=== PATIENT | female | born 1955 | race Caucasian/White ===

== ENCOUNTER 2019-08-13 10:47 | Outpatient (CLI) | payer MEDICARE, MEDICAID, SELFPAY ==
--- NOTE | 2019-08-13 | US_ITS ---
WS: [id number] ULTRASOUND THYROID TECHNIQUE: Ultrasound of the thyroid. CLINICAL INFORMATION: THYROID NODULE COMPARISON: None. FINDINGS: Thyroid: Right and left thyroid lobes are normal in size and echotexture. No thyroid nodules are pres ent. Right thyroid lobe: 2.2 cm x 0.8 cm x 0.8 cm Left thyroid lobe: 2.0 cm x 0.7 cm x 0.5 cm. Isthmus: 1.3 mm. Cervical lymphadenopathy: None. US/US thyroid [id number] IMPRESSION: Normal thyroid ultrasound examination.
== END 2019-08-13 10:48 | disposition home or self-care (01) ==
LOC: RADOUTREAD 10:50
PROVIDERS: Family Provider Internal Medicine; Visit Provider Internal Medicine
DX: E04.1 Nontoxic single thyroid nodule (principal)

== ENCOUNTER 2019-10-06 07:45 | Outpatient (CLI) | payer MEDICARE, MEDICAID, SELFPAY ==
--- NOTE | 2019-10-06 07:51 | CT_ITS ---
WS: [id number] CT LUNG CANCER SCREENING DLP: 57.43 mGy.cm DIvol: 1.52 mGy CLINICAL INFORMATION SCREENING VISIT: Baseline COMPARISON: Neck CT 04/12/2015 FINDINGS Diagnostic quality: Satisfactory Comments: None. Lung Nodules: Benign calcified nodule in the RIGHT lower lobe measures 7 mm. No suspicious nodules ar e identified. Lungs: Biapical pleural thickening and increased soft tissue is identified, RIGHT greater than LEFT. These changes were also present on the neck CT of 04/12/2015. Lungs are hyperinflated. Mild RIGHT midd le lobe bronchiectasis with bronchial wall thickening. Heart: Mild cardiomegaly. Small amount of pericardial fluid along the posterior pericardial recess. C alcification noted in the LEFT anterior descending coronary artery. Other findings: Moderate atherosclerosis thoracic aorta. No adenopathy. Prior cholecystectomy. CT/CT lung screening [id number] IMPRESSION: LUNG-RADS: 1S-Negative with Significant Findings FOLLOW UP: 12 Month: Continue annual screening with LDCT 1. Benign granuloma RIGHT lower lobe. 2. RIGHT middle lobe bronchiectasis. 3. Stable biapical pleural thickening and fibrosis. 4. Chronic emphysema. 5. Mild atherosclerosis coronary arteries. 6. Prior cholecystectomy.
== END 2019-10-06 07:46 | disposition home or self-care (01) ==
LOC: CT 07:46
PROVIDERS: Family Provider Internal Medicine; PCP Internal Medicine; Visit Provider Internal Medicine
DX: Z12.2 Encounter for screening for malignant neoplasm of respiratory organs (principal); F17.210 Nicotine dependence, cigarettes, uncomplicated; J84.10 Pulmonary fibrosis, unspecified; J47.9 Bronchiectasis, uncomplicated; J43.9 Emphysema, unspecified; I25.10 Atherosclerotic heart disease of native coronary artery without angina pectoris; Z90.49 Acquired absence of other specified parts of digestive tract
CPT/HCPCS: G0297

== ENCOUNTER → 2020-02-26 14:41 | Outpatient (BNVA) | payer MEDICARE, MEDICAID, SELFPAY | PROVIDERS: Family Provider Internal Medicine; PCP Internal Medicine; Visit Provider Nurse Practitioner Women's Health | DX: R30.0 Dysuria; R30.9 Painful micturition, unspecified | CPT/HCPCS: 80053; 81000; 87077; 87086; 87186 ==

== ENCOUNTER 2021-07-19 15:38 | Outpatient (CLI) | payer MEDICARE, MEDICAID, SELFPAY ==
--- NOTE | 2021-07-19 | CT_ITS ---
WS: [id number] CT CHEST TECHNIQUE: Noncontrast CT of the chest with coronal and sagittal reformatted images. CLINICAL INFORMATION: CHEST PAIN COMPARISON: CT October 06, 2019 DLP: [address] scans at [facility] use at least one of these dose optimization techniques: automated e xposure control; mA and/or kV adjustment per patient size (includes targeted exams where dose is matc hed to clinical indication); or iterative reconstruction. FINDINGS: Moderate chronic emphysematous changes. No acute pulmonary infiltrates. Biapical pleural thickening. Stable right middle lobe bronchiectasis. Fibrosis with micronodular nodularity in the anterior upper lobe unchanged. Calcified granuloma right lower lobe. No focal pneumonia or pleural fluid. Normal caliber ascending and descending thoracic aorta. Mild aortic calcification. No mediastinal or hilar lymphadenopathy. No axillary lymphadenopathy. Adrenal glands are normal. Cholecystectomy clips. Normal caliber descending thoracic aorta. CT/CT chest wo con [id number] IMPRESSION: 1. No abnormalities in the area of the right clavicle. Visualized right clavic le appears normal. 2. Moderate chronic emphysematous changes. No acute pulmonary infiltrates. 3. Stable biapical fibrosis.Stable right middle lobe bronchiectasis. Fibrosis with micronodular nodularity in the anterior upper lobe unchanged. 4. No mediastinal or hilar lymphadenopathy. 5. Cholecystectomy clips.
== END 2021-07-19 15:39 | disposition home or self-care (01) ==
PROVIDERS: PCP Internal Medicine; Visit Provider Internal Medicine
DX: R07.9 Chest pain, unspecified (principal); Z90.49 Acquired absence of other specified parts of digestive tract; J47.9 Bronchiectasis, uncomplicated
CPT/HCPCS: 71250

== ENCOUNTER → 2021-11-02 16:13 | Outpatient (BNVA) | payer MEDICARE, MEDICAID, SELFPAY | PROVIDERS: PCP Internal Medicine; Visit Provider Nurse Practitioner Women's Health | DX: R30.0 Dysuria (principal) | CPT/HCPCS: 84315; 87077; 87086; 87184 ==

== ENCOUNTER 2021-11-14 13:45 | Outpatient (CLI) | payer MEDICARE, MEDICAID, SELFPAY ==
--- NOTE | 2021-11-14 14:08 | MM_ITS ---
WS: [id number] BILATERAL 3D TOMOSYNTHESIS DIGITAL DIAGNOSTIC MAMMOGRAPHY WITH CAD CLINICAL INFORMATION: N64.4 - Mastodynia HISTORY: RIGHT breast pain COMPARISON: 6 ,019 TECHNIQUE: Bilateral CC, MLO, and ML views. FINDINGS: The breasts are composed of heterogeneous fibroglandular density, which can limit the detection of sm all underlying mass lesions. A few incidental punctate calcifications. Ultrasound RIGHT breast is pen ding. ULTRASOUND BREAST RIGHT TECHNIQUE: Ultrasound right breast focused area of concern. CLINICAL INFORMATION: N64.4 - Mastodynia COMPARISON: None. FINDINGS: Ultrasound RIGHT breast at the 12:00 position 6 cm from the nipple. No underlying cystic or solid les ions. Dense parenchymal tissue. Additional ultrasound RIGHT axilla in the area of patient concern. No rmal axilla. No suspicious findings. MM/[place] [id number] IMPRESSION: BI-RADS: 2-Benign FOLLOW UP: 1 Year Follow-up Recommend return to annual screening mammography.
== END 2021-11-14 13:46 | disposition home or self-care (01) ==
LOC: RAD 13:49
PROVIDERS: PCP Internal Medicine; Visit Provider Nurse Practitioner Women's Health
DX: N64.4 Mastodynia (principal); R92.2 Inconclusive mammogram
CPT/HCPCS: 76642; 77062

== ENCOUNTER → 2022-07-17 09:50 | Outpatient (BNVA) | payer MEDICARE, MEDICAID, SELFPAY | PROVIDERS: PCP Internal Medicine; Visit Provider Nurse Practitioner Women's Health | DX: N89.8 Other specified noninflammatory disorders of vagina (principal); R30.0 Dysuria | CPT/HCPCS: 81000; 87086; 87184; 87481; 87491; 87512; 87591; 87661; 87798; 87799 ==

== ENCOUNTER → 2022-11-06 16:12 | Outpatient (BNVA) | payer MEDICARE, MEDICAID, SELFPAY | PROVIDERS: PCP Internal Medicine; Visit Provider Nurse Practitioner Women's Health | DX: R39.89 Other symptoms and signs involving the genitourinary system (principal) | CPT/HCPCS: 81000; 87086 ==

== ENCOUNTER 2022-11-21 10:44 | Outpatient (CLI) | payer MEDICARE, MEDICAID, SELFPAY ==
--- NOTE | 2022-11-21 10:57 | MM_ITS ---
WS: [id number] BILATERAL SCREENING DIGITAL TOMOSYNTHESIS MAMMOGRAM WITH CAD HISTORY: SCREENING COMPARISON: 11/14/2021, 01/07/2019 Bilateral CC and MLO views with tomosynthesis and synthetic mammography submitted. Computer aided det ection analyzed. Breast composition: There are scattered areas of fibroglandular density. No suspicious masses, microc alcifications or architectural distortion. MM/[place] [id number] IMPRESSION: BI-RADS: 1-Negative FOLLOW UP: 1 Year Follow-up
== END 2022-11-21 10:45 | disposition home or self-care (01) ==
LOC: RAD 10:49
PROVIDERS: PCP Internal Medicine; Visit Provider Nurse Practitioner Women's Health
DX: Z12.31 Encounter for screening mammogram for malignant neoplasm of breast (principal)
CPT/HCPCS: 77063; 77067

== ENCOUNTER 2023-02-05 13:30 | Emergency (ER) | payer MEDICARE, MEDICAID, SELFPAY ==
--- NOTE | 2023-02-05 13:35 | XRR_ITS ---
PROCEDURE INFORMATION: Exam: XR Right Knee Exam date and time: 02/05/2023 1:43 PM Age: 67 years old Clinical indication: Injury or trauma; Fall; Blunt trauma; Knee; Right; Injury date: 02/05/2023; Additional info: Pain/fall TECHNIQUE: Imaging protocol: Radiologic exam of the right knee. Views: 3 views. COMPARISON: US ROR venous duplex LE RT 05/12/2018 3:09 PM FINDINGS: Bones/joints: Alignment is normal. Lateral compartment joint space narrowing. No acute fracture. No joint effusion. Soft tissues: There is edema in the infrapatellar fat pad. XR/XR knee RT 3V* [id number] IMPRESSION: 1. No acute fracture. 2. Edema in the infrapatellar fat pad. Nonspecific. Possible contusion or injury to the patellar tendon.
[2023-02-05 14:01] VITALS: BP 137/77; PULSE 56; RESP 16; TEMP 36.9; O2SAT 97; BMI 19.1
--- NOTE | 2023-02-05 14:09 | W.ED.LOWEXIN ---
HPI - Extremity Injury (Lower) General: Chief Complaint: Fall Stated Complaint: fall, right knee pain Time Seen by Provider: 02/05/23 14:07 Source: patient Mode of arrival: wheelchair Limitations: no limitations History of Present Illness: Patient is a nice 67-year-old female presents to ED today with a complaint of right knee pain/injury that she sustained after tripping and falling and landing directly onto the knee. Since injury patient has noticed swelling to the knee. She states she is not able to flex or extend the extremity and is not able to bear weight secondary to pain. She has no other injuries or complaints related to the fall. complaint: knee injury Onset (ago): hour(s) Injury: Right: knee Place: home Severity: severe Severity scale (1-10): 8 Relieving factors: immobilization Exacerbating factors: weight bearing, movement and palpation Context: fall and direct blow Associated symptoms: Reports inability to bear weight Other symptoms: none Review of Systems Musc: Reports: joint pain (R knee) and joint swelling (R knee); Denies: neck pain, back pain, extremity pain or extremity swelling Neuro: Reports: difficulty walking (secondary to R knee pain); Denies: headache(s), numbness in extremities, weakness in extremities or sensory changes PFSH ED PFSH: Medical History Arthritis DDD (degenerative disc disease) Dyslipidemia Dyspareunia Fibromyalgia muscle pain Hypothyroidism No pertinent past medical history neghx: htn,dm,dvt/pe PCP: Dr. Mitchell Tobacco use Surgical History H/O section -1985 -1987 H/O tubal ligation (~1992) History of appendectomy History of laparoscopic-assisted vaginal hysterectomy (~2000) [facility]IL[facility]-- [place] Hx of cholecystectomy (~08/2014) Performed by Dr Silvestre at [facility] in [place], [place]. Family History Father Heart attack Cancer throat cancer--mets to bladder/kidney Hyperlipidemia Mother Diabetes Stroke Hypertension Mother Family history of thyroid problem Family/Other Breast cancer Maternal Aunt--dx age 70's Maternal cousin--dx age late 30's Denies family history of Colon cancer Ovarian cancer Uterine cancer Social History Substance/Drug Use: never Physical Exam Const: COMMON NORMALS: no acute distress, patient oriented x3, no limitations, healthy appearing, alert and well nourished HENMT: COMMON NORMALS: normocephalic and atraumatic HEAD & SCALP: normal to inspection, normocephalic and atraumatic Neck/C-Spine: CERVICAL SPINE: Yes cervical ROM normal, No Cervical spine tenderness and No step off deformity Back/Pelvis: COMMON NORMALS: thoracic and lumbar spine normal to inspection and no thoracic nor lumbar tenderness Extremity: COMMON NORMALS: capillary refill normal, no clubbing, cyanosis or edema, no calf tenderness and no pedal edema GENERAL: Yes normal exam except as noted RIGHT LOWER EXTREMITY: Yes knee joint (significantly tender to superior knee joint and patella with effusion) Right knee: Yes inspection (mild swelling/effusion noted), Yes ROM (virtually no ROM secondary to pain) and Yes neurovascular exam (normal) Neuro: COMMON NORMALS: patient oriented x3, moves all extremities, no focal motor deficits and no sensory deficits noted SENSORIUM/ORIENTATION: Yes alert GAIT: Yes Unable to assess gait Skin: TRAUMA: no lacerations or abrasions Course Vital Signs: Vital signs: Vital Signs Temperature 98.4 F 02/05/23 14:01 Pulse Rate 56 L 02/05/23 14:01 Respiratory Rate 16 02/05/23 14:01 Blood Pressure 137/77 02/05/23 14:01 Pulse Oximetry 97 02/05/23 14:01 Oxygen Delivery Me thod Room Air 02/05/23 14:01 MDM - Extremity Injury (Lower) Medical Decision Making Patient XR was negative however clinical suspicion for fracture so CT was ordered. It does show a nondisplaced fracture at the inferior pole of her patella. She will be placed in a knee immobilizer, given crutches, instructions for nonweightbearing, she will follow-up with orthopedics. The end of our visit patient asked if I could address another complaint related to some burning she was having along her tongue and gums. Patient states she does wear dentures and admittedly does not remove these at night. Most likely patient experiencing some dental stomatitis. We discussed removing dentures at night, vigorous brushing, and soaking them in chlorhexidine. We will also place her on nystatin oral swish suspension. She can follow-up with primary care if symptoms or not improved in 2 weeks. Lab Data Radiology Impressions Knee X-Ray 02/05/23 13:35 IMPRESSION: 1. No acute fracture. 2. Edema in the infrapatellar fat pad. Nonspecific. Possible contusion or injury to the patellar tendon. Knee CT 02/05/23 14:27 IMPRESSION: 1. Nondisplaced fracture at the inferior pole of the patella. 2. Lipohemarthrosis. Discharge Plan Discharge Patient Disposition: Home Clinical Impression: Denture stomatitis Patella fracture Qualifiers: Encounter type: initial encounter Fracture type: closed Fracture morphology: unspecified fracture morphology Fracture alignment: nondisplaced Laterality: right Qualified Code(s): S82.001A - Unspecified fracture of right patella, initial encounter for closed fracture Condition: Stable Prescriptions: New hydrocodone-acetaminophen 5-325 mg tablet 1 tab PO Q6H PRN (Reason: pain) Qty: 14 0RF Peridex 0.12 % mouthwash 30 ml PO DAILY Qty: 473 0RF Rx Instructions: SOAK DENTURES IN OVERNIGHT nystatin 100,000 unit/mL suspension 4 ml PO QID 14 Days Qty: 224 0RF Rx Instructions: swish in mouth as long as possible (several minutes) then can spit No Action levothyroxine [Synthroid] 75 mcg tablet 75 mcg PO DAILY atorvastatin 10 mg tablet 10 mg PO DAILY pantoprazole 40 mg tablet,delayed release (DR/EC) 40 mg PO DAILY metoprolol tartrate 50 mg tablet 50 mg PO Q12H Patient Comments: 1/2 pill in the morning and 1/2 pill in the evening clonazepam 0.5 mg tablet 0.5 mg PO .COMPLEX PRN Rx Instructions: 0.5 mg PO 1/2 to 1 tab Q8H as needed PRN; acetaminophen 500 mg capsule 500 mg PO Q6H PRN estradiol [Yuvafem] 10 mcg tablet 10 mcg VAGINAL .twice weekly Qty: 24 3RF nitrofurantoin macrocrystal 100 mg capsule 100 mg PO BID Qty: 14 0RF Rx Instructions: must administer with a meal/food metronidazole 0.75 % (37.5mg/5 gram) gel 1 appful vaginal DAILY 5 Days Qty: 70 0RF Discharge Orders: Discharge ED (Routine); Ordered 02/05/23 Ordered By: Nancy Hawkins Referrals: Raz Mitchell DO [Primary Care Provider] - Patient Instructions: Patellar Fracture (ED), Opioid Safety, Pain Management Activity Restrictions/Additional Instructions: As we discussed case management should contact you shortly to set you up with your follow-up orthopedic appointment. You need to stay in your knee immobilizer at all times apart from showering and bathing and nonweightbearing until told otherwise by orthopedics In regards to your denture stomatitis. Dentures need to be removed before going to bed and brushed vigorously and then soaked in the solution of chlorhexidine (prescription for this has been provided to you). You also need to begin swishing with the nystatin solution. You may follow-up with primary care in 2 weeks if symptoms have not improved. Coding Level of Care Code ED Negative Cutter for Yasmany Carrillo
--- NOTE | 2023-02-05 14:27 | CTR_ITS ---
PROCEDURE INFORMATION: Exam: CT Right Lower Extremity Without Contrast, Knee Exam date and time: 02/05/2023 2:33 PM Age: 67 years old Clinical indication: Injury or trauma; Blunt trauma; Right; Injury details: Fall x today. Landed on bilateral knees and hands. Severe pain on RT knee. Unable to bear weight; Additional info: Trauma; Severe pain TECHNIQUE: Imaging protocol: CT of the right lower extremity without contrast was performed. Exam focused on the knee. Radiation optimization: All CT scans at this facility use at least one of these dose optimization techniques: automated exposure control; mA and/or kV adjustment per patient size (includes targeted exams where dose is matched to clinical indication); or iterative reconstruction. REPORTING DATA: Count of CT and Cardiac NM exams in prior 12 months: This patient has received 0 known CTs and 0 known cardiac nuclear medicine studies in the 12 months prior to the current study. COMPARISON: CR XR knee RT 3V* [id number] 02/05/2023 1:43 PM RADIATION DOSE METRICS: Total DLP (mGy-cm): 234.18 FINDINGS: Bones/joints: There is a subtle linear lucency at the inferior margin of the patella visible on axial series 3 image 38 through 42. See also coronal series 6, image 2. Alignment is normal. Joint spaces are preserved. The distal femur, proximal tibia and fibula are intact. Moderate size lipohemarthrosis. Quadriceps and patellar tendons are grossly unremarkable but suboptimally evaluated by CT. Intact anterior and posterior cruciate ligaments are visible. Soft tissues: Extra-articular soft tissues are unremarkable. There is edema in Hoffa's fat. CT/CT knee RT wo con* [id number] IMPRESSION: 1. Nondisplaced fracture at the inferior pole of the patella. 2. Lipohemarthrosis.
[2023-02-05 15:53] VITALS: BP 137/77; PULSE 56; RESP 16; TEMP 36.9; O2SAT 97
--- NOTE | 2023-02-06 09:01 | DCPLANNER ---
Addendum entered by Ariana Reynolds 02/13/23 11:43: manager plumbing received the following message from the ortho clinic regarding follow up appointment: Contacted patient and she informed me she is going to follow-up with her Primary Care first. I told her if her PC wants her to get in with us, just to call us back and we can get her scheduled with our [employer]PER[employer] Travis! Original Note: manager plumbing had message to schedule a follow up appointment for patient with ortho. manager plumbing sent patients information to the front office staff at ortho. Patients information will be printed and reviewed. Clinic will call patient with appointment information.
== END 2023-02-05 15:53 | disposition home or self-care (01) ==
PROVIDERS: Emergency Provider Physician Assistant; PCP Internal Medicine
DX: S82.091A Other fracture of right patella, initial encounter for closed fracture (principal); K12.1 Other forms of stomatitis; E03.9 Hypothyroidism, unspecified; W01.0XXA Fall on same level from slipping, tripping and stumbling without subsequent striking against object, initial encounter
CPT/HCPCS: 29530; 73562; 73700; 99283; E0114

== ENCOUNTER → 2023-03-18 10:24 | Outpatient (BNVA) | payer MEDICARE, MEDICAID, SELFPAY | PROVIDERS: PCP Internal Medicine; Referring Provider Internal Medicine; Visit Provider Nurse Practitioner Family | DX: S82.001A Unspecified fracture of right patella, initial encounter for closed fracture (principal); W01.0XXA Fall on same level from slipping, tripping and stumbling without subsequent striking against object, initial encounter | CPT/HCPCS: 73562; 99213 ==

== ENCOUNTER → 2023-03-29 09:50 | Outpatient (BNVA) | payer MEDICARE, MEDICAID, SELFPAY | PROVIDERS: PCP Internal Medicine; Visit Provider Nurse Practitioner Women's Health | DX: R39.89 Other symptoms and signs involving the genitourinary system (principal) | CPT/HCPCS: 87086 ==

== ENCOUNTER → 2023-04-23 10:31 | Outpatient (BNVA) | payer MEDICARE, MEDICAID, SELFPAY | PROVIDERS: PCP Internal Medicine; Visit Provider Physician Assistant | DX: S82.001A Unspecified fracture of right patella, initial encounter for closed fracture (principal); W01.0XXA Fall on same level from slipping, tripping and stumbling without subsequent striking against object, initial encounter | CPT/HCPCS: 99213 ==

== ENCOUNTER → 2023-04-25 11:00 | Outpatient (BNVA) | payer MEDICARE, MEDICAID, SELFPAY | PROVIDERS: PCP Family Medicine; Visit Provider Family Medicine | DX: Z23 Encounter for immunization (principal); E03.9 Hypothyroidism, unspecified; I49.9 Cardiac arrhythmia, unspecified; M19.90 Unspecified osteoarthritis, unspecified site; E78.5 Hyperlipidemia, unspecified; K13.79 Other lesions of oral mucosa; K21.9 Gastro-esophageal reflux disease without esophagitis; F17.200 Nicotine dependence, unspecified, uncomplicated | CPT/HCPCS: 80053; 80061; 84439; 84443; 85025 ==

== ENCOUNTER → 2023-05-23 15:40 | Outpatient (BNVA) | payer MEDICARE, MEDICAID, SELFPAY | PROVIDERS: PCP Family Medicine; Visit Provider Obstetrics & Gynecology | DX: R39.89 Other symptoms and signs involving the genitourinary system (principal) | CPT/HCPCS: 81000; 87086; 87184 ==

== ENCOUNTER → 2023-07-12 12:08 | Outpatient (BNVA) | payer MEDICARE, MEDICAID, SELFPAY | PROVIDERS: PCP Family Medicine; Visit Provider Family Medicine | DX: E03.9 Hypothyroidism, unspecified (principal); F51.01 Primary insomnia; I48.91 Unspecified atrial fibrillation; I48.0 Paroxysmal atrial fibrillation; M19.90 Unspecified osteoarthritis, unspecified site; E78.5 Hyperlipidemia, unspecified; K21.9 Gastro-esophageal reflux disease without esophagitis; F17.200 Nicotine dependence, unspecified, uncomplicated; R53.83 Other fatigue | CPT/HCPCS: 82607; 84439; 84443 ==

== ENCOUNTER 2023-08-19 18:50 | Emergency (ER) | payer MEDICARE, MEDICAID, SELFPAY ==
[2023-08-19 18:54] VITALS: BP 173/91; PULSE 67; RESP 16; TEMP 36.6; O2SAT 96; BMI 19.1
[2023-08-19 20:11] LABS: Basophils # 0.1 10^3/uL (0.0-0.1); Basophils % 0.9 %; Eosinophils # 0.2 10^3/uL (0.0-0.8); Eosinophils % 2.8 %; Hematocrit 42.5 % (36-47); Lymphocytes # 2.3 10^3/uL (0.8-4.8); Lymphocytes % 36.6 %; Mean Corpuscular HGB Conc 32.9 g/dL (30-55); Mean Corpuscular Hemoglobin 32.9 pg (27-33); Mean Platelet Volume 8.6 fL (7.4-10.4); Monocytes # 0.4 10^3/uL (0.2-0.9); Monocytes % 6.9 %; Neutrophils # 3.33 10^3/uL (1.8-7.7); Neutrophils % 52.5 %; Nucleated Red Blood Cells % 0 %; Platelet Count 336 10^3/cmm (157-399); Red Blood Count 4.25 10^6/uL (3.85-5.65); Red Cell Distribution Width 13.9 % (12.1-15.1); White Blood Count 6.36 10^3/uL (3.29-11.43)
[2023-08-19 20:30] LABS: Alanine Aminotransferase 11 U/L (0-33); Albumin Level 4.2 g/dL (3.5-5.2); Alkaline Phosphatase 109 U/L (35-105); Anion Gap 11.6 (5-19); Aspartate Amino Transferase 17 U/L (0-32); Blood Urea Nitrogen 16 mg/dL (8-23); Carbon Dioxide 28 mmol/L (22-29); Chloride 104 mmol/L (98-107); Glomerular Filtration Rate 83.7 mL/min (90-130); Glucose 106 mg/dL (65-115); Osmolality Calculated 290 mOsm/kg (285-295); Potassium 4.6 mmol/L (3.5-5.1); Sodium 139 mmol/L (136-145); Total Bilirubin 0.2 mg/dL (0.15-1.2); Total Protein 7.2 g/dL (6.6-8.7)
--- NOTE | 2023-08-19 20:31 | ECG_ITS ---
[facility] Test Date: 2023-08-19 Pat Name: Angela Varela Department: Room: Gender: Female [employer] Member: : [id number] Requested By: Luca Mcdaniel Order Number: [id number] Wally MD: Puja Faith M.D. Measurements Intervals Crystal Rate: 51 P: 71 AZ: 200 QRS: 227 QRSD: 72 T: 79 QT: 420 QTc: 390 Interpretive Statements SINUS BRADYCARDIA WITH OCCASIONAL SUPRAVENTRICULAR PREMATURE COMPLEXES INDETERMINATE AXIS POSSIBLE RIGHT VENTRICULAR HYPERTROPHY [SOME/ALL OF: PROMINENT R IN V1, LATE TRANSITION, RAD, PHILOMENA, SSS] SEPTAL MYOCARDIAL INFARCTION , OF INDETERMINATE AGE [40+ ms Q WAVE IN V1/V2] Compared to ECG 11/28/2017 23:10:48 Myocardial infarct finding now present Sinus rhythm no longer present T-wave abnormality no longer present Electronically Signed On 08-20-2023 19:47:16 [employer] by Puja Faith M.D. [email or web address]
[2023-08-19 20:51] VITALS: BP 145/69; PULSE 51; O2SAT 98
--- NOTE | 2023-08-19 20:52 | W.ED.CHESTPA ---
HPI - Chest Pain General: Stated Complaint: high bp Time Seen by Provider: 08/19/23 19:26 History of Present Illness: 67-year-old female presents emergency department with complaints that she feels like her blood pressure was elevated. She states she had her son check it and it was a systolic of 134. She states she rechecked it and it became elevated even higher to 144 and her son advised her to come to the emergency department to have it evaluated. She states that she was told sometime ago that she does have an irregular heartbeat and states that she thinks it is a sinus rhythm with arrhythmia. She states that she became very nervous and anxious and felt like she might have some pressure on her chest but thinks that it was only anxiety and the panic attack. She denies shortness of breath at present. She denies nausea vomiting dizziness or lightheaded feeling. She states that her chest pain has completely resolved when she was in the vehicle and coming to the hospital. Review of Systems General: Reports: 10 or more systems reviewed and unremarkable except in HPI and below Card: Reports: chest pain and irregular heart rhythm Psych: Reports: anxiety and panic attacks PFSH ED PFSH: Medical History GERD (gastroesophageal reflux disease) Arrhythmia No pertinent past medical history neghx: htn,dm,dvt/pe PCP: Dr. Mitchell Arthritis DDD (degenerative disc disease) Hypothyroidism Fibromyalgia muscle pain Tobacco use Dyslipidemia Dyspareunia Surgical History History of appendectomy H/O tubal ligation (~1992) Hx of cholecystectomy (~08/2014) [place] Silvest[place] [facility] [place] H/O section -1985 -1987 History of laparoscopic-assisted vaginal hysterectomy (~2000) JIM SILVA-- RAMEZ Family History Father Heart attack Cancer throat cancer--mets to bladder/kidney Hyperlipidemia Mother Diabetes Stroke Hypertension Mother Family history of thyroid problem Family/Other Breast cancer Maternal Aunt--dx age 70's Maternal cousin--dx age late 30's Other Anesthesia complication CAD (coronary artery disease) Clotting disorder Denies family history of Colon cancer Ovarian cancer Dementia Psychiatric illness Chronic kidney disease (CKD) Bleeding disorder Lung disease Uterine cancer Social History Smoking and tobacco/nicotine status: current every day tobacco/nicotine user Alcohol intake: never Substance/Drug Use: never Lives independently: Yes Marital status: Number of children: 3 Current occupational status: disabled [employer] laura needs: No Agree to transfusion: Yes Physical Exam Narrative: EXAM NARRATIVE: Constitutional: the patient appears well nourished and of normal development. Vital signs as documented. No acute distress at present. Alert and oriented-to person, place, time and situation. Head, eyes, ears, nose, mouth, throat: Normocephalic, atraumatic. Pupils-equal, round, reactive to light. No scleral icterus. Normal-appearing external ears. Normal appearing nasal turbinates, no drainage. No obvious oral lesions, posterior oropharynx without erythema or exudates. Neck: Supple, trachea is midline, no lymphadenopathy, no jugular venous distension, thyromegaly, or carotid bruits. Carotid upstrokes are brisk bilaterally. Lungs: clear to auscultation to all lung tay. Symmetrical rise and fall of chest, no obvious signs of increased work of breathing at present. Cardiac: Bradycardic rhythm, positive S1, S2. No murmurs, rubs or gallops that I can appreciate Abdomen: Soft, non-tender to palpation, normal active bowel sounds to all quadrants. No palpable masses, no organomegaly and abdominal bruits. Extremities: 2+ pulses in the upper extremities that are equal bilaterally, 2+ pulses in the lower extremities that are equal bilaterally. Non-edematous. Moves all extremities well, sensation to all extremities are noted. Skin: Warm, dry, intact. Course Reevaluation(s): Reevaluation #1: Patient have remained chest pain-free during her entire time here in the emergency department her blood pressure has improved and is currently 138/67 I discussed with her the need to follow-up with her primary care physician and potentially cardiology and she verbalized understanding all information is provided. I did discuss management of her metoprolol and requested that she discuss her current medication frequency with her primary care physician. Time: 21:22 Vital Signs: Vital signs: Vital Signs Temperature 97.9 F 08/19/23 18:54 Pulse Rate 51 L 08/19/23 20:51 Respiratory Rate 16 08/19/23 18:54 Blood Pressure 145/69 08/19/23 20:51 Pulse Oximetry 98 08/19/23 20:51 Oxygen Delivery Me thod Room Air 08/19/23 20:51 MDM - Chest Pain Medical Decision Making Physical exam completed and documented, I will obtain serial cardiac enzymes, serial twelve-lead EKGs, chest x-ray, CBC, CMP, urinalysis, B-type natriuretic peptide, PT/PTT/INR, and a chest x-ray. I have reviewed any pervious and pertinent medical records for assist in obtaining beneficial medical information to improved the care and treatment of the patient. Medical Records I reviewed the patient's medical records. Lab Data I reviewed the patient's lab results. 08/19/23 19:58 08/19/23 19:58 Laboratory Results WBC 6.36 10^3/uL (3.29-11.43) 08/19/23 19:58 RBC 4.25 10^6/uL (3.85-5.65) 08/19/23 19:58 Hgb 14.00 g/dL (11.27-16.99) 08/19/23 19:58 Hct 42.5 % (36-47) 08/19/23 19:58 MCV 100.0 fl (85-98) H 08/19/23 19:58 MCH 32.9 pg (27-33) 08/19/23 19:58 MCHC 32.9 g/dL (30-55) 08/19/23 19:58 RDW 13.9 % (12.1-15.1) 08/19/23 19:58 Plt Count 336 10^3/cmm (157-399) 08/19/23 19:58 MPV 8.6 fL (7.4-10.4) 08/19/23 19:58 Neut % (Auto) 52.5 % 08/19/23 19:58 Lymph % (Auto) 36.6 % 08/19/23 19:58 Collier % (Auto) 6.9 % 08/19/23 19:58 Eos % (Auto) 2.8 % 08/19/23 19:58 Baso % (Auto) 0.9 % 08/19/23 19:58 Neut # (Auto) 3.33 10^3/uL (1.8-7.7) 08/19/23 19:58 Lymph # (Auto) 2.3 10^3/uL (0.8-4.8) 08/19/23 19:58 Collier # (Auto) 0.4 10^3/uL (0.2-0.9) 08/19/23 19:58 Eos # (Auto) 0.2 10^3/uL (0.0-0.8) 08/19/23 19:58 Baso # (Auto) 0.1 10^3/uL (0.0-0.1) 08/19/23 19:58 Nucleated RBC % (auto) 0 % 08/19/23 19:58 Nucleated RBCs # 0.0 /100WBC 08/19/23 19:58 Sodium 139 mmol/L (136-145) 08/19/23 19:58 Potassium 4.6 mmol/L (3.5-5.1) 08/19/23 19:58 Chloride 104 mmol/L (98-107) 08/19/23 19:58 Carbon Dioxide 28 mmol/L (22-29) 08/19/23 19:58 Anion Gap 11.6 (5-19) 08/19/23 19:58 BUN 16 mg/dL (8-23) 08/19/23 19:58 Creatinine 0.7 mg/dL (0.5-0.9) 08/19/23 19:58 GFR Calculation 83.7 mL/min (90-130) L 08/19/23 19:58 Glucose 106 mg/dL (65-115) 08/19/23 19:58 Calculated Osmolality 290 mOsm/kg (285-295) 08/19/23 19:58 Calcium 10.0 mg/dL (8.5-10.5) 08/19/23 19:58 Total Bilirubin 0.2 mg/dL (0.15-1.2) 08/19/23 19:58 AST 17 U/L (0-32) 08/19/23 19:58 ALT 11 U/L (0-33) 08/19/23 19:58 Alkaline Phosphatase 109 U/L (35-105) H 08/19/23 19:58 Troponin T Baseline < 6 ng/L (0-10) 08/19/23 19:58 Total Protein 7.2 g/dL (6.6-8.7) 08/19/23 19:58 Albumin 4.2 g/dL (3.5-5.2) 08/19/23 19:58 Globulin 3.0 g/dL (1.3-4.6) 08/19/23 19:58 No radiology studies performed this visit EKG Data EKG 1: Interpretation: Twelve-lead EKG obtained at 2130 and reviewed at 2132 demonstrates sinus bradycardia with occasional PACs. Ventricular rate is 51 bpm the patient does take metoprolol, IL interval 200, QRS duration 72, QT 420, QTc 398, at present there is no ST elevation or depression to demonstrate acute ischemia or infarction. Discharge Plan Discharge Patient Disposition: Home Clinical Impression: Atypical chest pain, Anxiety Condition: Stable Prescriptions: No Action metoprolol tartrate 50 mg tablet 50 mg PO Q12H Patient Comments: 1/2 pill in the morning and 1/2 pill in the evening clonazepam 0.5 mg tablet 0.5 mg PO .COMPLEX PRN Rx Instructions: 0.5 mg PO 1/2 to 1 tab Q8H as needed PRN; acetaminophen 500 mg capsule 500 mg PO Q6H PRN pantoprazole 40 mg tablet,delayed release (DR/EC) 40 mg PO DAILY Qty: 90 1RF Peridex 0.12 % mouthwash 30 ml PO DAILY Qty: 473 3RF Rx Instructions: SOAK DENTURES IN OVERNIGHT atorvastatin 10 mg tablet 10 mg PO DAILY Qty: 90 1RF trazodone 50 mg tablet 50 mg PO DAILY Qty: 30 0RF estradiol [Yuvafem] 10 mcg tablet 10 mcg VAGINAL .twice weekly Qty: 24 3RF levothyroxine 75 mcg tablet 75 mcg PO DAILY Qty: 90 1RF mecobalamin (vitamin B12) 1,000 mcg tablet,chewable 1,000 mcg PO DAILY Qty: 60 0RF Discharge Orders: Discharge ED (Routine); Ordered 08/19/23 Ordered By: Luca Mcdaniel Referrals: Reese Valero MD [Primary Care Provider] - Discharge Diet: Advance as tolerated Discharge Activity: Resume usual activity Patient Instructions: Opioid Safety, Pain Management Activity Restrictions/Additional Instructions: Activity Restrictions/Additional Instructions: Thank you for choosing [facility] for your healthcare needs today. Please realize that you were seen in the Emergency Department and that we are providing you with an emergency medical screening exam and this may not be a complete and all inclusive of all the testing and or medical work-up that you may need to determine your ailment or severity of your illness. It is very important that you follow-up as instructed with your Primary care provider or Specialist for additional evaluation and to discuss your medical treatment plan. You may return to the Emergency Department should you have concerns or if your condition changes or worsens in any way. Coding Level of Care Code ED Health Practice Manager for Yasmany Carrillo
[2023-08-19 21:03] LABS: Troponin(5th) Baseline < 6 ng/L (0-10)
[2023-08-19 21:32] VITALS: BP 138/67; PULSE 54; O2SAT 100
== END 2023-08-19 21:34 | disposition home or self-care (01) ==
PROVIDERS: Emergency Provider Internal Medicine; PCP Family Medicine
DX: R07.89 Other chest pain (principal); F41.9 Anxiety disorder, unspecified; Z72.0 Tobacco use; E78.5 Hyperlipidemia, unspecified
CPT/HCPCS: 36415; 80053; 84484; 85025; 93005; 99284

== ENCOUNTER → 2023-09-20 15:16 | Outpatient (BNVA) | payer MEDICARE, MEDICAID, SELFPAY | PROVIDERS: PCP Family Medicine; Visit Provider Family Medicine | DX: E03.9 Hypothyroidism, unspecified (principal) | CPT/HCPCS: 84439; 84443 ==

== ENCOUNTER → 2024-06-03 10:20 | Outpatient (BNVA) | payer MEDICARE, MEDICAID, SELFPAY | PROVIDERS: PCP Family Medicine; Visit Provider Nurse Practitioner Women's Health | DX: R39.89 Other symptoms and signs involving the genitourinary system (principal) | CPT/HCPCS: 84315; 87086 ==

== ENCOUNTER → 2024-07-07 10:30 | Outpatient (BNVA) | payer MEDICARE, MEDICAID, SELFPAY | PROVIDERS: PCP Family Medicine; Visit Provider Nurse Practitioner Women's Health | DX: R39.89 Other symptoms and signs involving the genitourinary system (principal); R82.71 Bacteriuria | CPT/HCPCS: 81000; 87086 ==

== ENCOUNTER → 2025-01-26 10:34 | Outpatient (BNVA) | payer MEDICARE, MEDICAID, SELFPAY | PROVIDERS: PCP Family Medicine; Visit Provider Nurse Practitioner Women's Health | DX: M81.0 Age-related osteoporosis without current pathological fracture (principal) | CPT/HCPCS: 82306 ==

== ENCOUNTER → 2025-02-04 14:47 | Outpatient (BNVA) | payer MEDICARE, MEDICAID, SELFPAY | PROVIDERS: PCP Family Medicine; Visit Provider Family Medicine | DX: E03.9 Hypothyroidism, unspecified (principal) | CPT/HCPCS: 80053; 84439; 84443; 85025 ==

== ENCOUNTER → 2025-07-13 12:12 | Outpatient (BNVA) | payer MEDICARE, MEDICAID, SELFPAY | PROVIDERS: PCP Family Medicine; Visit Provider Family Medicine | DX: E03.9 Hypothyroidism, unspecified (principal) | CPT/HCPCS: 84439; 84443 ==